=== PATIENT | female | born 1985 ===

== ENCOUNTER 2021-12-12 10:47 | Emergency (ER) | payer BC, OTHER ==
[~2021-12-12] VITALS: Ht 170.2 cm; Wt 86.2 kg
[2021-12-12 11:34] VITALS: BP 124/78
== END 2021-12-12 11:57 | disposition left against medical advice (07) ==
LOC: ER 10:47
DX: S10.15XA Superficial foreign body of throat, initial encounter (principal); J45.909 Unspecified asthma, uncomplicated; Z88.2 Allergy status to sulfonamides; Z53.29 Procedure and treatment not carried out because of patient's decision for other reasons; X58.XXXA Exposure to other specified factors, initial encounter; Y93.89 Activity, other specified; Y92.89 Other specified places as the place of occurrence of the external cause; Y99.8 Other external cause status